=== PATIENT | male | born 1995 | race Two or more races ===

== ENCOUNTER 2020-01-01 10:24 | Emergency (ER) | payer SELFPAY ==
--- NOTE | ~2020-01-01 | XR_ITS ---
EXAMINATION: XR chest 1V portable DATE: 01/01/2020 11:12 INDICATION: Cough TECHNIQUE: frontal view of the chest was obtained. COMPARISON: None FINDINGS: The lungs are clear with no focal airspace opacities, pulmonary edema, pleural effusion or pneumothor ax. The cardiomediastinal silhouette is normal. Visualized bones and soft tissues are unremarkable. IMPRESSION: 1. No acute cardiopulmonary disease. Reviewed, dictated and finalized at location A.
[2020-01-01 10:41] VITALS: BP 146/102; PULSE 115; RESP 18; TEMP 36.6; O2SAT 100
[2020-01-01 11:01] LABS: Basophils Absolute Auto 0.1 K/mm3 (0.0-0.1); Basophils Percent Auto 0.5 % (0.2-1.2); Eosinophils Absolute Auto 0.1 K/mm3 (0-0.3); Hematocrit 51.2 % (42.0-52.0); Immature Granulocyte Absolute 0.06 K/mm3 (0.00-0.031); Immature Granulocyte Percent A 0.6 % (0-0.5); Lymphocytes Absolute Auto 2.88 K/mm3 (0.9-3.2); Mean Corpuscular HGB Conc 33.2 g/dl (32-36); Mean Corpuscular Volume 87.4 fl (80-100); Mean Platelet Volume 11.8 fl (7.4-10.4); Monocytes Absolute Auto 0.6 K/mm3 (0.1-0.6); Monocytes Percent Auto 5.9 % (2.6-8.5); Neutrophils Absolute Auto 6.2 K/mm3 (1.3-6.7); Platelet Count Result 183 k/mm3 (150-375); Red Blood Count 5.86 M/mm3 (4.6-6.20); Red Cell Distribution Width 13.1 % (11.5-14.5); White Blood Count 9.9 K/mm3 (4.5-10.0)
--- NOTE | 2020-01-01 11:06 | ED.GENADULT ---
HPI - General Adult General Chief complaint: Upper Respiratory Infection <Carlos Mccoy PA-C - Last Filed: 01/01/20 11:50> Stated complaint: cough, fever, recent traveling <Carlos Mccoy PA-C - Last Filed: 01/01/20 11:50> Time Seen by Provider: 01/01/20 10:27 <Carlos Mccoy PA-C - Last Filed: 01/01/20 11:50> Source: patient <Carlos Mccoy PA-C - Last Filed: 01/01/20 11:50> Mode of arrival: ambulatory <Carlos Mccoy PA-C - Last Filed: 01/01/20 11:50> Limitations: no limitations <Carlos Mccoy PA-C - Last Filed: 01/01/20 11:50> History of Present Illness HPI narrative: Patient is a 24-year-old male who presents to emergency department for evaluation of upper respiratory symptoms for the last 2 days congestion rhinorrhea nonproductive cough patient has not taken anything today for his symptoms. . 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. Patient denies vomiting diarrhea patient denies dyspnea. <Carlos Mccoy PA-C - Last Filed: 01/01/20 11:50> Related Data Home medications: Home Medications Medication Instructions Recorded Confirmed No Home Medications 01/01/20 01/01/20 <Carlos Mccoy PA-C - Last Filed: 01/01/20 11:50> Allergies/adverse reactions: Allergies Allergy/AdvReac Type Severity Reaction Status Date / Time No Known Allergies Allergy Verified 01/01/20 10:43 <Carlos Mccoy PA-C - Last Filed: 01/01/20 11:50> Review of Systems Review of Systems: All systems reviewed & are unremarkable except as noted in HPI and below <Carlos Mccoy PA-C - Last Filed: 01/01/20 11:50> [facility] Social History Social History: Social History Gender identity (if verbalized by the patient): Male <Carlos Mccoy PA-C - Last Filed: 01/01/20 11:50> Exam Narrative: Exam Narrative: GENERAL: Ill-appearing, obese, and in no acute distress. HEAD: Normocephalic, atraumatic. EYES: PERRLA and EOMI. ENT: Nares clear, no rhinorrhea or epistaxis. Mucous membranes moist. NECK: Supple. No adenopathy or masses. CHEST: Clear to auscultation. No respiratory distress. No wheezes rales or rhonchi HEART: Regular rate and rhythm. No murmur heard. Normal peripheral pulses. ABDOMEN: Soft, nontender, nondistended EXTREMITIES: Normal range of motion no edema SKIN: Warm, dry, no rash. NEURO: No focal deficits. Alert and oriented x3. Cranial nerves II through XII grossly intact. Neurovascularly intact PSYCH: Normal mood and affect. <RACHELL Dyer Last Filed: 01/01/20 11:50> Course Course Emergency Course: Patient in the room aware of case findings treatment plan and diagnosis agreeing to follow-up as directed or to return if symptoms worsen or concern <RACHELL Dyer Last Filed: 01/01/20 11:50> Vital Signs Vital signs: Vital Signs Temperature 36.6 C 01/01/20 10:41 Pulse Rate 115 H 01/01/20 10:41 Respiratory Rate 18 01/01/20 10:41 Blood Pressure 146/102 H 01/01/20 10:41 Pulse Oximetry 100 01/01/20 10:41 Temperature 36.6 C 01/01/20 11:36 Pulse Rate 92 01/01/20 12:07 Respiratory Rate 18 01/01/20 12:07 Blood Pressure 141/80 H 01/01/20 12:07 Pulse Oximetry 100 01/01/20 12:07 <RACHELL Dyer Last Filed: 01/01/20 11:50> Vital Signs Temperature 36.6 C 01/01/20 10:41 Pulse Rate 115 H 01/01/20 10:41 Respiratory Rate 18 01/01/20 10:41 Blood Pressure 146/102 H 01/01/20 10:41 Pulse Oximetry 100 01/01/20 10:41 Temperature 36.6 C 01/01/20 11:36 Pulse Rate 92 01/01/20 12:07 Respiratory Rate 18 01/01/20 12:07 Blood Pressure 141/80 H 01/01/20 12:07 Pulse Oximetry 100 01/01/20 12:07 <Thania Lynch MD - Last Filed: 01/01/20 15:11> Medical Decision Making MDM Narrative Medical decision making narrative: Patient wi
[2020-01-01 11:07] VITALS: BP 148/100; PULSE 91; RESP 18; O2SAT 100
[2020-01-01] MEDS: SODIUM CHLORIDE 0.9% IV 1,000 ML 999 ML IV CONT (11:08)
[2020-01-01 11:14] LABS: Alanine Aminotransferase 35 U/L (4-50); Albumin Level 4.9 g/dL (3.5-5.1); Alkaline Phosphatase 77 U/L (38-126); Aspartate Amino Transferase 27 U/L (17-59); Bilirubin,Total 0.6 mg/dL (0.2-1.3); Blood Urea Nitrogen 7 mg/dL (9-20); Calcium 9.6 mg/dL (8.4-10.2); Carbon Dioxide 25 mmol/L (22-30); Chloride 104 mmol/L (98-107); Estimated Glomerular Filt Rate > 60; Glucose 107 mg/dL (75-110); Potassium 3.7 mmol/L (3.4-5.0); Sodium 139 mmol/L (137-145)
[2020-01-01 11:34] VITALS: BP 153/118; PULSE 103; RESP 18; O2SAT 99
[2020-01-01 11:36] VITALS: TEMP 36.6
[2020-01-01 12:07] VITALS: BP 141/80; PULSE 92; RESP 18; O2SAT 100
== END 2020-01-01 12:08 | disposition home or self-care (01) ==
LOC: ANHED 11:46
PROVIDERS: Emergency Medicine Emergency Medical Services; Emergency Provider Emergency Medicine
DX: B34.9 Viral infection, unspecified (principal)
CPT/HCPCS: 36415; 71045; 80053; 85025; 87804; 96365; 99284; J0131; J7030